=== PATIENT | male | born 1990 | race Two or more races ===

== ENCOUNTER 2019-07-15 20:11 | Emergency (ER) | payer OTHER ==
--- NOTE | 2019-07-15 21:27 | ED Physician Documentation ---
History of Present Illness - Stated complaint Stated Complaint: CANT SWALLOW - Chief complaint Chief Complaint: Heent - History obtained from History obtained from: Patient - History of Present Illness Timing: Enter time (17:00), Today Pain level max: 6 Pain level now: 0 Improved by: nothing Worsened by: any PO intake including liquids, as well as swallowing his own secretions - Additonal information Additional information: was eating veal tonight at approximately 5:15 PM when he felt as though the piece of food he had just swallowed got caught; he has had midline low chest pain, nausea and vomiting since then. Then vomiting is only when he tries to eat or drink anything. He has pain and nausea that worsens when he even tries to swallow his own secretions Review of Systems Cardiac: reports: Chest pain / pressure Respiratory: reports: Reviewed and negative GI: reports: Abdominal Pain, Nausea, Vomiting. denies: Constipation, Diarrhea PD PAST MEDICAL HISTORY - Past Medical History Past Medical History: No - Past Surgical History Past Surgical History: Yes General: Appendectomy Ortho: ACL reconstruction HEENT: Other - Allergies Allergies/Adverse Reactions: Allergies Allergy/AdvReac Type Severity Reaction Status Date / Time No Known Drug Allergies Allergy Verified 07/15/19 20:15 - Social History Does the pt smoke?: No Smoking Status: Never smoker Does the pt drink ETOH?: Yes ETOH Use: Beer Does the pt have substance abuse?: No - Immunizations Immunizations are current?: Yes - POLST Patient has POLST: No PD ED PE NORMAL - Vitals Vital signs reviewed: Yes - General General: Alert and oriented X 3, Well developed/nourished, Other (appears uncomfortable) - Cardiac Cardiac: RRR, No murmur - Respiratory Respiratory: No respiratory distress, Clear bilaterally - Abdomen Abdomen: Soft, Non tender, Non distended - Derm Derm: Normal color, Warm and dry Results - Vitals Vitals: Vital Signs - 24 hr 07/15/19 07/15/19 20:15 22:22 Temperature 36.5 C 36.6 C Heart Rate 103 H 95 Respiratory 14 18 Rate Blood Pressure 127/93 H 141/84 H O2 Saturation 98 98 Oxygen O2 Source Room air - Labs Labs: Laboratory Tests 07/15/19 07/15/19 21:47 21:47 WBC 7.4 RBC 5.01 Hgb 15.8 Hct 45.8 MCV 91.4 MCH 31.5 H MCHC 34.5 RDW 11.9 L Plt Count 214 MPV 9.9 Neut # (Auto) 3.6 Lymph # (Auto) 2.7 [place] # (Auto) 0.6 Eos # (Auto) 0.5 Baso # (Auto) 0.1 Absolute Nucleated RBC 0.00 Nucleated RBC % 0.0 Sodium 141 Potassium 3.5 Chloride 100 L Carbon Dioxide 27 Anion Gap 14.0 H BUN 13 Creatinine 1.1 Estimated GFR (MDRD) 79 L Glucose 110 H Calcium 9.5 Total Bilirubin 0.8 AST 33 ALT 46 Alkaline Phosphatase 40 L Total Protein 8.8 H Albumin 5.2 Globulin 3.6 Albumin/Globulin Ratio 1.4 Lipase 24 PD MEDICAL DECISION MAKING - ED course Complexity details: reviewed results, re-evaluated patient, considered differential, d/w patient ED course: vomited shortly after IV glucagon but subsequently had complete resolution of symptoms and was able to tolerate PO with recurrence Departure - Departure Disposition: 01 Home, Self Care Clinical Impression: Esophageal obstruction due to food impaction Condition: Good Instructions: ED Foreign Body Esophageal Rslv Discharge Date/Time: 07/15/19 23:21
[2019-07-15] MEDS ORDERED: GLUCAGON 1 MG/ML VIAL IVP STA (21:36)
[2019-07-15] MEDS ORDERED: SODIUM CHLORIDE 0.9% 1,000 ML IV STA (21:36)
[2019-07-15 21:53] LABS: BASOPHILS # (AUTO) 0.1 10^3/uL (0.0-0.1); BASOPHILS % (AUTO) 1.3 %; EOSINOPHILS # (AUTO) 0.5 10^3/uL (0.0-0.7); EOSINOPHILS % (AUTO) 7.1 %; HGB - HEMOGLOBIN 15.8 g/dL (14.0-18.0); LYMPHOCYTES # (AUTO) 2.7 10^3/uL (1.5-3.5); LYMPHOCYTES % (AUTO) 35.8 %; MEAN CORPUSCULAR HEMOGLOBIN 31.5 pg (27.0-31.0); MEAN CORPUSCULAR HGB CONC 34.5 g/dL (32.0-36.0); MEAN CORPUSCULAR VOLUME 91.4 fL (80.0-94.0); MEAN PLATELET VOLUME 9.9 fL (7.4-11.4); MONOCYTES # (AUTO) 0.6 10^3/uL (0.0-1.0); MONOCYTES % (AUTO) 7.4 %; NEUTROPHILS # (AUTO) 3.6 10^3/uL (1.5-6.6); PLT - PLATELET COUNT 214 10^3/uL (130-450); RED BLOOD COUNT 5.01 10^6/uL (4.70-6.10); RED CELL DISTRIBUTION WIDTH 11.9 % (12.0-15.0); WHITE BLOOD COUNT 7.4 x10^3/uL (4.8-10.8)
[2019-07-15] MEDS ORDERED: ONDANSETRON 4 MG/2 ML VIAL IVP STA (22:01)
[2019-07-15 22:06] LABS: ALBUMIN 5.2 g/dL (3.2-5.5); ALBUMIN/GLOBULIN RATIO 1.4 (1.0-2.2); BILIRUBIN,TOTAL 0.8 mg/dL (0.2-1.0); CALCIUM 9.5 mg/dL (8.5-10.3); CREATININE 1.1 mg/dL (0.6-1.2); TOTAL PROTEIN 8.8 g/dL (6.7-8.2)
[2019-07-15 22:23] VITALS: BP 141/84
== END 2019-07-15 23:21 | disposition home or self-care (01) ==
LOC: ED 20:11
DX: T18.128A Food in esophagus causing other injury, initial encounter (principal)
CPT/HCPCS: 36415; 80053; 83690; 85025; 96361; 96374; 96375; 99284